=== PATIENT | male | born 1975 | race Caucasian/White ===

== ENCOUNTER 2018-04-18 07:31 | Emergency (ER) | payer BC ==
[~2018-04-18] VITALS: Ht 180.3 cm; Wt 81.0 kg
[2018-04-18 07:39] VITALS: BP 108/69
[2018-04-18] MEDS ORDERED: ketorolac trometh. 30mg/ml inj. IM ONE (08:20)
[2018-04-18] MEDS ORDERED: NAPR-56 PO (09:10)
[2018-04-18] MEDS ORDERED: CYCL-1 PO (09:10)
== END 2018-04-18 09:28 | disposition home or self-care (01) ==
LOC: ER 07:31
DX: S29.012A Strain of muscle and tendon of back wall of thorax, initial encounter (principal); Z98.890 Other specified postprocedural states; X58.XXXA Exposure to other specified factors, initial encounter; Y93.89 Activity, other specified; Y92.89 Other specified places as the place of occurrence of the external cause; Y99.8 Other external cause status
CPT/HCPCS: 71046; 72070; 96372; 99284; J1885